=== PATIENT | male | born 1955 | race Caucasian/White ===

== ENCOUNTER → 2017-09-21 | Outpatient (CLI) | payer BC ==
[~2017-09-21] MED LIST: GLEC1TAB PO; IOPAMIDOL-370 100 ML VIAL IV ONE; MULT-1192 PO
== END | disposition home or self-care (01) ==
LOC: OIH 08:00
PROVIDERS: ATTEND Internal Medicine Gastroenterology
DX: K80.20 Calculus of gallbladder without cholecystitis without obstruction (principal); N28.1 Cyst of kidney, acquired
CPT/HCPCS: 74177; Q9967

== ENCOUNTER 2017-10-07 06:28 | Day surgery (SDC) | payer BC ==
[~2017-10-07] VITALS: Ht 177.8 cm; Wt 75.5 kg
[~2017-10-07 06:28] MED LIST changes: -IOPAMIDOL-370 100 ML VIAL IV ONE
[2017-10-07 06:32] VITALS: BP 146/89
[2017-10-07] MEDS ORDERED: SODIUM CHLORIDE 0.9% 1000ML 1,000 ML IV ONE (06:41)
[2017-10-07] MEDS ORDERED: GLYCOPYRROLATE 0.2 MG/ML 5 ML VIAL ONE (07:32)
[2017-10-07] MEDS ORDERED: PROPOFOL 10 MG/ML 20ML VIAL IV ONE (07:32)
[2017-10-07] MEDS ORDERED: LIDOCAINE HCL 2% 20ML ONE (07:32)
[2017-10-07] MEDS ORDERED: FENTANYL CITRATE PF 50 MCG/1 ML 2ML VIAL ONE (07:32)
[2017-10-07 08:05] VITALS: BP 89/51
== END 2017-10-07 08:34 | disposition home or self-care (01) ==
LOC: DAH 06:28 → EDUNIT# 08:30 → DAH 08:34
PROVIDERS: ATTEND Internal Medicine Gastroenterology
DX: D12.3 Benign neoplasm of transverse colon (principal); Z80.0 Family history of malignant neoplasm of digestive organs; B19.20 Unspecified viral hepatitis C without hepatic coma
CPT/HCPCS: 45385; 88305; A4606; J2704; J3010; J3490 ×2; J7030